=== PATIENT | female | born 2000 | race Caucasian/White ===

== ENCOUNTER 2021-08-12 08:18 | Emergency (ER) | payer OTHER ==
[~2021-08-12] VITALS: Ht 157.5 cm; Wt 59.5 kg
[2021-08-12 08:24] VITALS: TEMP 97.6
[2021-08-12 10:09] VITALS: BP 110/79; PULSE 105
== END 2021-08-12 10:09 | disposition home or self-care (01) ==
LOC: COL.ER 08:18
DX: R51.9 Headache, unspecified (principal); Z28.310 Unvaccinated for COVID-19